=== PATIENT | female | born 1995 | race Caucasian/White ===

== ENCOUNTER 2024-02-17 09:00 | Emergency (ER) | payer OTHER, SELFPAY ==
[2024-02-17 09:13] VITALS: BP 167/119
[2024-02-17 10:00] VITALS: BP 142/101
[2024-02-17 10:23] VITALS: BMI 32.1
--- NOTE | 2024-02-17 10:29 | ED.GENMED ---
History of Present Illness
General
Chief Complaint: Blood Pressure Problem
Source: patient and family
Exam Limitations: none
Time Seen by Provider: 02/17/24 09:37
Nursing documentation reviewed up to this point in time: agreed with
History of Present Illness
History of Present Illness:
28-year-old female without significant past medical history presenting to the emergency department with today with concerns of vague symptoms of feeling 'off, decreased energy scratchy throat and paresthesias to her feet bilaterally symmetrically
over the past few weeks. Diagnosed with COVID 3 weeks ago symptoms have been somewhat present since then. She has been checking her blood pressure regularly over the past 3 weeks is noticed that her blood pressure has been in the 140s over 100s.
No history of high blood pressure. No chest pain shortness of breath no changes in urination bowel movements or abdominal pain.
Review of Systems
Review of Systems
Allergies reviewed?: Yes
All Other Systems: ROS reviewed and negative except as documented in HPI and ROS
Phy Exam
Physical Exam
Physical Exam:
GENERAL: Alert , in no apparent distress
EYE: pupils equal and reactive
NECK: Supple, no significant adenopathy.
ENT: o/p clr, mmm.
CARDIAC: Regular rate and rhythm .
LUNGS: Clear breath sounds bilaterally, no acute respiratory distress, no wheezes/rales/rhonchi
ABDOMEN: Soft, without focal tenderness, no r/g, no cvat
NEUROLOGICAL: Alert and oriented, no focal neuro deficits
SKIN: Warm and dry, skin intact.
MUSCULOSKELETAL: No edema, well perfused.
PSYCH: Normal and appropriate interaction.
Course
Orders/Labs/Results
Orders:
Orders
02/17/24 09:18
Electrocardiogram (*1) Urgent
Reason for Study: Hypertension, Benign
EKG- Treatment ONCE
02/17/24 09:55
Test Result ONCE
02/17/24 10:18
Beta Hcg Serum Qualitative Screen [HCG, Serum Qualitative Screen] Urgent
CBC/With Diff [Complete Blood Count/With Diff] Urgent
CMP [Comprehensive Metabolic Panel] Urgent
Magnesium Urgent
Monotest Urgent
Comment: ADD ON
TSH Reflex To Free T4 Urgent
02/17/24 10:19
Urinalysis Reflex To Culture Urgent
Date Specimen was Collected: 02/17/24
Time Specimen was Collected: 10:17
Comment: clean catch
Urine Microscopic Reflex Cult Urgent
02/17/24 12:15
Add On- LAB Urgent
Tests Added?: monotest
Abnormal Lab Results
02/17/24 02/17/24
10:18 10:19
MCH 32.0 H pg
(27.0-31.0)
MCHC 37.3 H g/dL
(33.0-37.0)
MPV 10.5 H fL
(7.4-10.4)
Absolute Lymphs (auto) 0.8 L 10^3/uL
(1.2-3.4)
Neutrophils % 78.4 H %
(42.2-75.2)
Lymphocytes % 13.9 L %
(20.5-51.1)
Glucose 104 H mg/dl
(70-99)
AST 63 H U/L
(14-36)
ALT 70 H U/L
(0-35)
Leukocyte Esterase Rfl Trace A
(Negative)
02/17/24 10:18
02/17/24 10:18
Vital Signs
Initial and Last Documented VS:
Initial Vital Signs
Temp Pulse Resp BP Pulse Ox
98.7 F 76 18 167/119 100
02/17/24 09:13 02/17/24 09:13 02/17/24 09:13 02/17/24 09:13 02/17/24 09:13
Last Documented Vital Signs
Temp Pulse Resp BP Pulse Ox
98.7 F 70 20 152/99 98
02/17/24 12:43 02/17/24 12:43 02/17/24 12:43 02/17/24 12:43 02/17/24 12:43
MDM/Problems Addressed
MDM/Problems Addressed:
28-year-old female presenting to the emergency department today with concerns of vague symptoms over the past few weeks after having COVID. Denies chest pain shortness of breath. Has had some tingling to her feet bilaterally as well as decreased
energy. On arrival blood pressure in 160s over 110s during my assessment blood pressure was rechecked in the 160s over 80s. Heart rate respiratory rate and temperature are normal. Normal pulse ox. She denies any symptoms consistent with
hypertensive emergency. Patient has a normal heart and lung examination. Throat is normal in appearance. Labs revealing a slight transaminitis otherwise no emergent findings. Blood pressure here in the 150s over 90s. Patient no distress. No
evidence of emergent pathology. Advised for close outpatient follow-up. Return precautions given.
*Critical Care Note
Total Time (30-74mins, 75-104mins- exclusive of procedures): Not Applicable
ED Attending Note
-
Portions of this chart may have been created with voice recognition software.� Occasional wrong word or��sound alike� substitutions may have occurred due to the inherent limitations of voice recognition software.
Discharge Plan
Departure
Patient Disposition: Home (Routine Discharge)
Date of Disposition: 02/17/24
Time of Disposition: 13:07
Patient with high blood pressure during this ER visit?: Yes
Condition: Good
Covid-19: Not Applicable
Discharge Problem:
Fatigue, Paresthesia, High blood pressure, Elevated liver function tests
Instructions: BLOOD PRESSURE
Referrals:
Ernestine Carl MD [Family Provider] -
Activity Restrictions/Additional Instructions:
You came to the emergency department today with concerns of multiple symptoms. Here your blood pressure was elevated to the 150s over 90s. Please keep an eye on this and follow-up closely with the primary care doctor in this regard. Additionally
you had a slightly elevated liver function tests. This should be repeated over the next week or 2. Please follow closely with the primary care doctor within 1 to 2 weeks for reassessment. Return to the emergency department for any worsening, new
or concerning symptoms.
Interventions
Interventions:
*Risk Screen - Suicide Last Done: 02/17/24 09:43
*General Assessment Last Done: 02/17/24 09:38
*Neglect/Abuse Screening Last Done: 02/17/24 09:39
ED- Fall Risk Assessment Last Done: 02/17/24 09:44
ED- Cardiac Assessment Last Done: 02/17/24 09:43
ED- Neurological Assessment Last Done: 02/17/24 09:44
ED- Pulmonary Assessment Last Done: 02/17/24 09:44
Discharge Date and Time
Print Language: MALTESE
[2024-02-17 10:33] LABS: Urine Albumin Negative (Neg - Trace); Urine Bilirubin Negative (Negative); Urine Character Clear (Clear); Urine Color Yellow; Urine Glucose Negative (Negative); Urine Ketone Negative (Negative); Urine Leukocyte Trace (Negative); Urine Nitrite Negative (Negative); Urine Occult Blood Negative (Negative); Urine Urobilinogen Negative (Neg - 1+)
[2024-02-17 10:41] LABS: HCG, Serum Qualitative Screen Negative
[2024-02-17 10:47] LABS: ALT (SGPT) 70 U/L (0-35); AST (SGOT) 63 U/L (14-36); Albumin 4.9 g/dl (3.5-5.0); Alkaline Phosphatase 51 U/L (38-126); Blood Urea Nitrogen 11 mg/dl (7-17); Calcium 9.8 mg/dl (8.4-10.2); Carbon Dioxide 26 mmol/L (22-30); Chloride 104 mmol/L (98-107); Estimated Creatinine Clearance 109 ml/min; Glucose 104 mg/dl (70-99); Potassium 4.2 mmol/L (3.5-5.1); Sodium 141 mmol/L (135-145); Total Bilirubin 1.3 mg/dl (0.2-1.3); Total Protein 7.4 g/dl (6.3-8.2); eGFR > 60.00
[2024-02-17 11:08] VITALS: BP 146/81
[2024-02-17 11:22] LABS: % Basophils 0.5 % (0-2); % Eosinophils 0.3 % (0-6); % Immature Granulocytes 0.5 % (0-0.5); % Lymphocytes 13.9 % (20.5-51.1); % Monocytes 6.4 % (1.7-9.3); % Neutrophils 78.4 % (42.2-75.2); Absolute Lymphocytes 0.8 10^3/uL (1.2-3.4); Absolute Monocytes 0.4 10^3/uL (0.1-0.6); Absolute Neutrophils 4.7 10^3/uL (1.4-6.5); Hematocrit 42.1 % (37.0-47.0); Hemoglobin 15.7 g/dL (12.0-16.0); Mean Corp Hgb Conc. 37.3 g/dL (33.0-37.0); Mean Corpuscular Volume 85.7 fL (81.0-99.0); Mean Platelet Volume 10.5 fL (7.4-10.4); Nucleated Red Blood Cells % 0 %; Platelet Count 253 10^3/uL (130-400); Red Blood Cell Count 4.91 10^6/uL (4.20-5.40); Red Cell Dist. Width 11.5 % (11.5-14.5)
[2024-02-17 12:43] VITALS: BP 152/99
[2024-02-17 12:50] LABS: Urine Red Blood Cell None Seen /HPF (0-2); Urine Squamous Cell 16-20 /LPF (Few)
[2024-02-17 14:25] LABS: Monotest Negative (Negative)
== END 2024-02-17 13:26 | disposition home or self-care (01) ==
LOC: EMR 09:00
PROVIDERS: Physician Assistant; EMERGENCY PHYSICIAN Emergency Medicine; FAMILY PHYSICIAN Family Medicine
DX: R53.83 Other fatigue (principal); R20.2 Paresthesia of skin; R03.0 Elevated blood-pressure reading, without diagnosis of hypertension; R79.89 Other specified abnormal findings of blood chemistry
CPT/HCPCS: 99284; 80053; 81003; 81015; 83735; 84443; 84703; 85025; 86308; 93005

== ENCOUNTER → 2024-03-09 10:21 | Outpatient (REF) | payer OTHER, SELFPAY ==
[2024-03-09 13:31] LABS: Rubella Positive
[2024-03-09 15:47] LABS: Mumps Virus IgG Positive
[2024-03-12 00:23] LABS: Quantiferon Mitogen minus NIL 9.99 IU/mL; Quantiferon NIL 0.01 IU/mL; Quantiferon TB Gold Plus Negative (Negative)
== END ==
LOC: OHS 10:21
PROVIDERS: ATTENDING PHYSICIAN Nurse Practitioner Family
DX: Z23 Encounter for immunization (principal)
CPT/HCPCS: 36415; 86480; 86735; 86762; 86765; 86787

== ENCOUNTER → 2025-01-25 09:12 | Outpatient (REF) | payer BC, SELFPAY ==
[2025-01-25 10:28] LABS: ALT (SGPT) 36 U/L (0-35); AST (SGOT) 38 U/L (14-36); Albumin 4.5 g/dl (3.5-5.0); Alkaline Phosphatase 39 U/L (38-126); Blood Urea Nitrogen 13 mg/dl (7-17); Calcium 9.1 mg/dl (8.4-10.2); Carbon Dioxide 23 mmol/L (22-30); Chloride 107 mmol/L (98-107); Glucose 89 mg/dl (70-99); HDL Cholesterol 58 mg/dl; LDL Cholesterol, Calculated 88 mg/dl; Potassium 4.4 mmol/L (3.5-5.1); Sodium 138 mmol/L (135-145); Total Protein 7.1 g/dl (6.3-8.2); Very Low Density Lipoprotein 20 mg/dl (0-30); eGFR > 60.00
[2025-01-25 10:44] LABS: Hematocrit 39.3 % (37.0-47.0); Hemoglobin 14.7 g/dL (12.0-16.0); Mean Corp Hgb Conc. 37.4 g/dL (33.0-37.0); Mean Corpuscular Volume 87.5 fL (81.0-99.0); Nucleated Red Blood Cells % 0 %; Platelet Count 245 10^3/uL (130-400); Red Cell Dist. Width 11.9 % (11.5-14.5)
== END ==
LOC: REG 09:12
PROVIDERS: ATTENDING PHYSICIAN Nurse Practitioner Family
DX: Z00.00 Encounter for general adult medical examination without abnormal findings (principal)
CPT/HCPCS: 36415; 80053; 80061; 84443; 85025